=== PATIENT | female | born 1970 | race Caucasian/White ===

== ENCOUNTER 2016-08-13 23:21 | Emergency (ER) | payer OTHER, MEDICAID ==
[~2016-08-13] VITALS: Ht 162.6 cm; Wt 97.1 kg
[~2016-08-13 23:21] MED LIST: INSLANTI SC; INSLISPI SC
[2016-08-13 23:51] VITALS: BP 122/70
== END 2016-08-14 02:19 | disposition left against medical advice (07) ==
LOC: ER 23:24
DX: S61.412A Laceration without foreign body of left hand, initial encounter (principal); Z53.21 Procedure and treatment not carried out due to patient leaving prior to being seen by health care provider; X58.XXXA Exposure to other specified factors, initial encounter; Y93.89 Activity, other specified; Y99.8 Other external cause status; Y92.89 Other specified places as the place of occurrence of the external cause
CPT/HCPCS: 81025

== ENCOUNTER 2016-12-17 00:03 | Emergency (ER) | payer OTHER, MEDICAID ==
[~2016-12-17] VITALS: Ht 165.1 cm; Wt 90.7 kg
[2016-12-17] MEDS ORDERED: DEXTROSE (50%) 50ML SYRG IV ONE (01:00)
[2016-12-17 01:09] LABS: Basophils # (auto) 0.1 uL; Basophils % (auto) 0.6 % (0.0-2.0); Eosinophils # (auto) 0 uL; Eosinophils % (auto) 0.5 % (0.0-7.0); Hematocrit 37.4 % (36.0-46.0); Hemoglobin 12.4 g/dL (12.2-16.2); Lymphocytes # (auto) 1.3 uL; Lymphocytes % (auto) 12.7 % (10.0-50.0); Mean Corpuscular Hemoglobin 31.6 pg (28.0-32.0); Mean Corpuscular Volume 95.6 fL (80.0-100.0); Mean Platelet Volume 7.4 fL (7.4-10.4); Monocytes # (auto) 0.6 uL; Monocytes % (auto) 5.8 % (0.0-12.0); Neutrophils # (auto) 7.9 uL; Neutrophils % (auto) 80.4 % (37.0-80.0); Platelet Count (auto) 283 10^3/uL (140-450); Red Cell Distribution Width 13.6 % (11.6-16.0); White Blood Cell 9.9 10^3/uL (4.4-10.8)
[2016-12-17 01:29] LABS: Albumin 3.6 g/dL (3.4-5.0); BUN/Creatinine Ratio 16.5; Calcium 8.6 mg/dL (8.5-10.1); Potassium 3.9 mmol/L (3.5-5.1)
[2016-12-17 01:34] LABS: Bilirubin, Total 0.5 mg/dL (0.2-1.0); Total Protein 7.6 g/dL (6.4-8.2)
[2016-12-17 01:36] LABS: B-Type Natriuretic Peptide 49.74 pg/mL (0-100); Temperature: 22.7 C (20.0-25.0)
[2016-12-17 04:30] VITALS: BP 109/76
== END 2016-12-17 04:38 | disposition home or self-care (01) ==
LOC: ER 00:03 → EDBD 00:03 → ER 04:38
DX: S00.83XA Contusion of other part of head, initial encounter (principal); E11.9 Type 2 diabetes mellitus without complications; Z79.4 Long term (current) use of insulin; Z88.8 Allergy status to other drugs, medicaments and biological substances; W18.39XA Other fall on same level, initial encounter; Y93.89 Activity, other specified; Y92.89 Other specified places as the place of occurrence of the external cause; Y99.8 Other external cause status
CPT/HCPCS: 36415; 70450; 80053; 82962; 83880; 84484; 85025; 93005; 94761; 96374; 99285; J7042